=== PATIENT | male | born 1975 | race Caucasian/White ===

== ENCOUNTER 2020-05-27 13:58 | Emergency (ER) | payer OTHER, SELFPAY ==
[2020-05-27 14:03] VITALS: BP 158/93; PULSE 77; RESP 20; TEMP 36.4; O2SAT 96
[2020-05-27] MEDS: HYDROcodone/acetaminophen (*CRX) 5-325 MG TABLET 1 TAB PO (14:26)
[2020-05-27] MEDS: TETANUS,DIPHTHERIA,AC PERTUSSIS ADULT (0.5 ML) BOOSTRIX IM (14:26)
--- NOTE | 2020-05-27 14:33 | ED.GENADULT ---
HPI - General Adult General Chief complaint: Burn/Smoke Inhalation Stated complaint: burn Time Seen by Provider: 05/27/20 14:05 History of Present Illness HPI narrative: Patient is a 45-year-old male who presents to the ER with a burn to his left hand. Patient was microwaving food for shoulder and when he took out a microwave it was hot and slipped and he tried to catch it with his left hand. Spaghetti sauce splashed all over his hand and volar forearm. He immediately washed with cold water. This occurred prior to arrival about 2 hours. Applied Aquaphor for comfort. She is concerned that there could be something more serious so he came in for further evaluation. Unsure of last tetanus shot. Has small blister developing over thenar eminence and proximal thumb. Maintains range of motion and sensation. Related Data Home Medications Medication Instructions Recorded Confirmed cilostazol 50 mg PO BID 05/27/20 05/27/20 losartan 100 mg PO DAILY 05/27/20 05/27/20 Allergies Allergy/AdvReac Type Severity Reaction Status Date / Time No Known Allergies Allergy Verified 05/27/20 14:18 Review of Systems Musculoskeletal: Musculoskeletal: Denies arthralgias and Denies joint swelling Integumentary/Breasts: Skin/Breast: Reports erythema Comments: Burn to hand and forearm left side Neurologic: Denies focal weakness and Denies numbness PMFSH Past Medical History Medical History (Updated 05/27/20 @ 15:37 by Oliver Lee MD) Hypertension Social History Social History (Updated 05/27/20 @ 15:34 by Oliver Lee MD) Additional occupation/education comments: Turn Out in [place] Exam Narrative: Exam Narrative: GENERAL: Well-appearing, well-nourished, and in no acute distress. HEAD: Normocephalic, atraumatic. EXTREMITIES: Normal range of motion. No edema. SKIN: Warm, dry, no rash. Left hand and forearm with superficial burn with similar partial thickness with blistering near the thenar eminence. Proximal 4 inches of forearm extending into the hand and thumb. There is some mild erythema. No loss of skin. Hair all intact. NEURO: Alert and oriented x3. PSYCH: Normal mood and affect. Course Course Emergency Course: Patient is already applied barrier cream. Recommend bacitracin for home with dressings for comfort. Bromide given for pain here and tetanus updated. Does not appear to need burn referral or surgery/plastics. Should heal well on its own. No large skin defects or blisters requiring debridement. Vital Signs Vital signs: Vital Signs Temperature 97.5 F L 05/27/20 14:03 Pulse Rate 77 05/27/20 14:03 Respiratory Rate 20 05/27/20 14:03 Blood Pressure 158/93 H 05/27/20 14:03 Pulse Oximetry 96 05/27/20 14:03 Temperature 97.5 F L 05/27/20 14:03 Pulse Rate 77 05/27/20 14:03 Respiratory Rate 20 05/27/20 14:03 Blood Pressure 158/93 H 05/27/20 14:03 Pulse Oximetry 96 05/27/20 14:03 Medical Decision Making Vital Signs Vital Signs: Vital Signs Temperature 97.5 F L 05/27/20 14:03 Pulse Rate 77 05/27/20 14:03 Respiratory Rate 05/27/20 14:03 Blood Pressure 158/93 H 05/27/20 14:03 Pulse Oximetry 96 05/27/20 14:03 Temperature 97.5 F L 05/27/20 14:03 Pulse Rate 77 05/27/20 14:03 Respiratory Rate 05/27/20 14:03 Blood Pressure 158/93 H 05/27/20 14:03 Pulse Oximetry 96 05/27/20 14:03 Discharge Plan Discharge Clinical Impression: Scald burn Patient Disposition: Home, Self-Care Condition: Stable Instructions: Superficial Burn (ED) Additional Instructions: Apply topical antibiotic (bacitracin) 2 times a day to help prevent infection. You may want to leave the area of injury open to the air intermittently throughout the day to let it dry out. Return to the ER if your hand/forearm become red and hot, you have pus draining from any blisters that develop, or you develop fever over 100.4 ?F. Prescriptions: New bacitracin [Bacit
[2020-05-27] MEDS: BACITRACIN OINTMENT 15 GM TUBE 1 APPLIC TOPICAL (15:15)
[2020-05-27 15:40] VITALS: BP 128/86; PULSE 81; RESP 20; O2SAT 97
== END 2020-05-27 15:40 | disposition home or self-care (01) ==
PROVIDERS: Emergency Provider Emergency Medicine; PCP Internal Medicine
DX: T23.202A Burn of second degree of left hand, unspecified site, initial encounter (principal); T22.212A Burn of second degree of left forearm, initial encounter; T31.0 Burns involving less than 10% of body surface; X12.XXXA Contact with other hot fluids, initial encounter; I10 Essential (primary) hypertension; Z23 Encounter for immunization
CPT/HCPCS: 90471; 90715; 99283; A9270